=== PATIENT | female | born 2000 | race Two or more races ===

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

== ENCOUNTER 2022-10-17 20:15 | Emergency (ER) | payer MEDICAID, OTHER ==
[~2022-10-17] VITALS: Ht 157.5 cm; Wt 89.9 kg
[2022-10-17] MEDS ORDERED: IBUP800T27 PO (23:40)
[2022-10-17] MEDS ORDERED: IBUPROFEN 800 MG TAB PO ONE (23:45)
[2022-10-18 00:01] VITALS: BP 139/72
== END 2022-10-18 00:16 | disposition home or self-care (01) ==
LOC: ER 20:15
DX: U07.1 COVID-19 (principal); H61.22 Impacted cerumen, left ear
CPT/HCPCS: 36415; 87426; 87804

== ENCOUNTER 2023-04-29 09:38 | Emergency (ER) | payer MEDICAID ==
[~2023-04-29] VITALS: Ht 157.5 cm; Wt 84.7 kg
[~2023-04-29 09:38] MED LIST: IBUP-1456 PO
[2023-04-29 10:43] VITALS: BP 114/82; PULSE 89; RESP 20; TEMP 97.8; O2SAT 96
[2023-04-29] MEDS ORDERED: IBUP-1456 PO (11:41)
[2023-04-29] MEDS ORDERED: AZIT500T66 PO (11:41)
== END 2023-04-29 11:54 | disposition home or self-care (01) ==
LOC: ER 09:38
DX: J03.90 Acute tonsillitis, unspecified (principal); H66.92 Otitis media, unspecified, left ear; Z88.8 Allergy status to other drugs, medicaments and biological substances; Z79.1 Long term (current) use of non-steroidal anti-inflammatories (NSAID); Z79.899 Other long term (current) drug therapy
CPT/HCPCS: 81002; 81025

== ENCOUNTER 2024-10-19 15:31 | Emergency (ER) | payer MEDICAID ==
[~2024-10-19] VITALS: Ht 157.5 cm; Wt 97.8 kg
[~2024-10-19 15:31] MED LIST changes: +AZIT500T66 PO
[2024-10-19 16:10] VITALS: BP 132/94; PULSE 89; RESP 20; TEMP 98.1; O2SAT 98
[2024-10-19] MEDS ORDERED: METH4PAK PO (16:28)
[2024-10-19] MEDS ORDERED: ALBU108A5 IN (16:28)
--- NOTE | 2024-10-19 16:28 | ED.PDOC ---
Eye-HPI HPI Comments 34 year old F presents for sore throat x 7 days No red flags Chief Complaint: Sore Throat Time Seen by MD: 15:48 Primary Care Provider: DUANE Hernandez Notes: Nurses Notes, Medications, Allergies Allergies: Coded Allergies: Codeine (Verified Allergy, Unknown, 10/17/22) Home Meds Active Scripts Albuterol Sulfate (Albuterol Sulfate Hfa) 108 Mcg/Act Aer, 108 MCG IN Q6HPRN PRN for 30 Days, #1 AER 0 Refills Prov:PIEROTONI GLASS SETTER 10/19/24 Methylprednisolone (Medrol Dosepak) 4 Mg Rashaad, 4 MG PO UD for 7 Days, #21 TAB 0 Refills UAD Prov:PIEROTONI GLASS SETTER 10/19/24 Ibuprofen (Ibuprofen) 800 Mg Tab, 1 TAB PO TID, #30 TAB Prov:ESSIE MELTON 04/29/23 Azithromycin (Azithromycin) 500 Mg Tab, 500 MG PO DAILY for 5 Days, #5 TAB Prov:ESSIE MELTON 04/29/23 Ibuprofen (Ibuprofen) 800 Mg Tab, 1 TAB PO Q6HPRN PRN, #30 TAB 0 Refills Prov:AMARA LAMBERT 10/17/22 Information Source: Patient Mode of Arrival: Ambulatory Past Medical History PAST MEDICAL HISTORY: Denies Surgical History: Denies all surgeries [employer] History: Denies all [employer] Hx Family History Family History: Reviewed,noncontributory to illness Social History Smoker: Non-Smoker Lives In: Home All Other Systems: Reviewed and Negative (per hpi) Physical Exam General Appearance: No Apparent Distress, Normal HEENT: Normal ENT Inspection, Pharynx Normal, TMs Normal Neck: Full Range of Motion, Non-Tender, Normal, Normal Inspection Respiratory: Chest Non-Tender, Lungs Clear, No Accessory Muscle Use, No Respiratory Distress, Normal Breath Sounds Cardiovascular: No Edema, No JVD, No Murmur, No Gallop, Normal Peripheral Pulses, Regular Rate/Rhythm Breast Exam: Deferred Gastrointestinal: No Organomegaly, Non Tender, No Pulsatile Mass, Normal Bowel Sounds, Soft Genitalia: Deferred Pelvic: Deferred Rectal: Deferred Extremities: No calf tenderness, Normal capillary refill, Normal inspection, Normal range of motion, Non-tender, No pedal edema Musculoskeletal : Apperance: Normal Neurologic: Alert, brick tester II-XII nml as Tested, No Motor Deficits, Normal Affect, Normal Mood, No Sensory Deficits Cerebellar Function: Normal Reflexes: Normal Skin: Dry, Normal Color, Warm Lymphatic: No Adenopathy Was a procedure done? Was a procedure done?: No EENT DIFF Eye: Other X-Ray, Labs, Meds, VS Vital Signs Date Time Temp Pulse Resp B/P (MAP) Pulse Ox O2 Delivery O2 Flow Rate FiO2 10/19/24 16:10 89 20 98 Room Air 10/19/24 16:10 98.1 89 20 132/94 (107) 98 98.1 10/19/24 15:35 98.1 89 20 132/94 (107) 98 98.1 X-Ray, Labs, Meds, VS Comment History and physical consistent of URI Take medication as prescribed No concerns for pneumonia at this time. No risk factors. No indication for an tibiotics Discussed that cough can linger up to 6 weeks after viral URI ED precautions if cough does not alleviate or if cough worsens Supportive care and return precautions discussed Counseled viral infection and explained that antibiotics would not be helpful in resolving the illness sooner. Recommended vitamin C, rest, handwashing, and symptomatic care. Expect 2-week course with possibly of cough lingering up to 6 weeks. Nonpharmacological remedies for fluids has been recommended as well Time of 1ST Reevaluation: 16:00 Reevaluation 1ST: Improved Patient Education/Counseling: Diagnosis, Treatment Family Education/Counseling: Diagnosis, Treatment Departure 1 Departure Time of Disposition: 16:27 Impression: Primary Impression: Laryngitis Disposition: HOME / SELF CARE / HOMELESS Condition: Stable e-Prescriptions Albuterol Sulfate (Albuterol Sulfate Hfa) 108 Mcg/Act Aer 108 MCG IN Q6HPRN PRN for 30 Days, #1 AER 0 Refills Prov: TONI HARRY GLASS SETTER 10/19/24 Methylprednisolone (Medrol Dosepak) 4 Mg Rashaad 4 MG PO UD for 7 Days, #21 TAB 0 Refills UAD Prov: TONI HARRY GLASS SETTER 10/19/24 Critical Care Note Critical Care Time?: No Stability Stability form required: No Heart Score Heart Score: Heart Score Response (Comments) Value History N/A 0 EKG N/A 0 Age N/A 0 Risk Factors N/A 0 Troponin N/A 0 Total 0 TONI HARRY NP Oct 19, 2024 16:28
== END 2024-10-19 16:35 | disposition home or self-care (01) ==
LOC: ER 15:31
DX: J04.0 Acute laryngitis (principal); Z88.5 Allergy status to narcotic agent; Z79.1 Long term (current) use of non-steroidal anti-inflammatories (NSAID)